=== PATIENT | female | born 1970 | race Caucasian/White ===

== ENCOUNTER → 2017-02-21 | Outpatient (CLI) | payer OTHER | END | disposition home or self-care (01) | LOC: CFH 07:16 | PROVIDERS: ATTEND Obstetrics & Gynecology Female Pelvic Medicine and Reconstructive Surgery | DX: N93.8 Other specified abnormal uterine and vaginal bleeding (principal) | CPT/HCPCS: 76830 ==

== ENCOUNTER 2017-06-18 05:35 | Day surgery (SDC) | payer OTHER ==
[~2017-06-18] VITALS: Ht 175.3 cm; Wt 97.8 kg
[2017-06-18 06:37] VITALS: BP 144/82
[2017-06-18] MEDS ORDERED: SYNTHROID PO (06:37)
[2017-06-18] MEDS ORDERED: LACTATED RINGERS 1,000 ML IV SCH ×2 (06:45→09:02)
[2017-06-18 06:47] LABS: BASOPHILS # (AUTO) 0.02 x10^3/uL (0-0.1); BASOPHILS % (AUTO) 0 % (0-1); EOSINOPHILS # (AUTO) 0.13 x10^3/uL (0-0.4); EOSINOPHILS % (AUTO) 2 % (1-7); LYMPHOCYTES # (AUTO) 1.97 x10^3/uL (1-3.4); LYMPHOCYTES % (AUTO) 22 % (22-44); MD NO; MEAN CORPUSCULAR HEMOGLOBIN 31.3 pg (27.0-34.8); MEAN CORPUSCULAR HGB CONC 33.5 g/dL (32.4-35.8); MEAN CORPUSCULAR VOLUME 93.3 fL (80-100); MEAN PLATELET VOLUME 7.4 fL (7.4-10.4); MONOCYTES # (AUTO) 0.69 x10^3/uL (0.2-0.8); MONOCYTES % (AUTO) 8 % (2-9); NEUTROPHILS # (AUTO) 6.27 x10^3/uL (1.8-6.8); NEUTROPHILS % (AUTO) 69 % (42-75); PLATELET COUNT 448 x10^3/uL (130-400); RED BLOOD COUNT 4.64 x10^6/uL (3.82-5.3); RED CELL DISTRIBUTION WIDTH 12.7 % (9.6-15.2)
[2017-06-18 06:49] LABS: HCG UR SG 1.024 (1.003-1.030)
[2017-06-18] MEDS ORDERED: ALBU8.5H8 INH (06:53)
[2017-06-18] MEDS ORDERED: MIDAZOLAM 1 MG/ML, 2ML ONE (07:05)
[2017-06-18] MEDS ORDERED: FENTANYL PF 250 MCG/5ML ONE (07:05)
[2017-06-18] MEDS ORDERED: LIDOCAINE GEL 2%, 5ML ONE (07:10)
[2017-06-18] MEDS ORDERED: INDIGO CARMINE 0.8%, 5ML ONE (07:11)
[2017-06-18] MEDS ORDERED: EPINEPHRINE 1 MG/ML, 1ML ONE (07:11)
[2017-06-18] MEDS ORDERED: BUPIVACAINE/PF 0.25% ONE (07:11)
[2017-06-18] MEDS ORDERED: KETOROLAC 30 MG/1 ML ONE (07:24)
[2017-06-18] MEDS ORDERED: FLUORESCEIN SODIUM 500 MG/5 ML ONE (07:46)
[2017-06-18] MEDS ORDERED: LIDOCAINE-MPF 2% ,5ML ONE (08:03)
[2017-06-18] MEDS ORDERED: PROPOFOL 10 MG/ML, 20ML ONE (08:06)
[2017-06-18] MEDS ORDERED: DEXAMETHASONE 4 MG/ML, 1ML ONE (08:06)
[2017-06-18] MEDS ORDERED: GLYCOPYRROLATE 0.2MG/1ML, 5ML ONE (08:06)
[2017-06-18] MEDS ORDERED: ROCURONIUM 10 MG/ML,10ML ONE (08:06)
[2017-06-18] MEDS ORDERED: ONDANSETRON 2MG/ML, 2ML ONE (08:06)
[2017-06-18] MEDS ORDERED: SUCCINYLCHOLINE 20 MG/ML, 10ML ONE (08:06)
[2017-06-18] MEDS ORDERED: CEFAZOLIN 1,000 MG ONE (08:06)
[2017-06-18] MEDS ORDERED: NEOSTIGMINE 1 MG/ML, 10ML ONE (08:06)
[2017-06-18] MEDS ORDERED: ALBUTEROL/IPRATROPIUM 2.5MG/0.5MG, 3 ML NPPB PRN (08:30)
[2017-06-18] MEDS ORDERED: FENTANYL PF 100 MCG/2ML IV PRN (08:30)
[2017-06-18] MEDS ORDERED: DIAZEPAM 5 MG/ML, 2ML IVPush PRN (08:30)
[2017-06-18] MEDS ORDERED: hydrALAzine 20 MG/ML, 1ML IV PRN (08:30)
[2017-06-18] MEDS ORDERED: HYDROmorphone 1 MG/ML, 1ML IV PRN (08:30)
[2017-06-18] MEDS ORDERED: LORazepam 2 MG/ML, 1ML IVPush PRN (08:30)
[2017-06-18] MEDS ORDERED: LABETALOL 5MG/ML, 20ML IV PRN (08:30)
[2017-06-18] MEDS ORDERED: METOCLOPRAMIDE 5 MG/ML, 2ML IV PRN (08:30)
[2017-06-18] MEDS ORDERED: ACETAMINOPHEN 325 MG TABLET PO PRN (08:30)
[2017-06-18] MEDS ORDERED: MEPERIDINE/PF 25MG/0.5ML IVPush PRN (08:30)
[2017-06-18] MEDS ORDERED: OXYcodone 5 MG/5 ML ORAL.SOL UDC PO PRN (08:30)
[2017-06-18] MEDS ORDERED: MIDAZOLAM 1 MG/ML, 2ML IV PRN (08:30)
[2017-06-18] MEDS ORDERED: ONDANSETRON 2MG/ML, 2ML IVPush PRN ×2 (08:30→09:30)
[2017-06-18] MEDS ORDERED: PROMETHAZINE 25 MG/ML, 1ML IV PRN (08:30)
[2017-06-18] MEDS ORDERED: PROMETHAZINE 12.5 MG SUPP PR PRN (08:30)
[2017-06-18] MEDS ORDERED: IBUPROFEN 600 MG TABLET PO PRN (09:30)
[2017-06-18] MEDS ORDERED: PROMETHAZINE 25 MG SUPP PR ONE (09:30)
[2017-06-18] MEDS ORDERED: OXYcodone/APAP 5/325MG TABLET PO PRN (09:30)
== END 2017-06-18 15:20 ==
LOC: OUT 05:35
PROVIDERS: ATTEND Obstetrics & Gynecology Female Pelvic Medicine and Reconstructive Surgery
DX: N93.8 Other specified abnormal uterine and vaginal bleeding (principal); D27.0 Benign neoplasm of right ovary; N73.6 Female pelvic peritoneal adhesions (postinfective); D25.9 Leiomyoma of uterus, unspecified; N83.8 Other noninflammatory disorders of ovary, fallopian tube and broad ligament; J45.909 Unspecified asthma, uncomplicated; E03.9 Hypothyroidism, unspecified; Z98.890 Other specified postprocedural states; Z88.5 Allergy status to narcotic agent
CPT/HCPCS: 36415; 58571; 81025; 85025; 88307; J0171; J0330; J0690; J1100; J1885; J2250; J2405; J2704; J2710; J3010; J3490; J7120

== ENCOUNTER → 2018-01-29 | Outpatient (CLI) | payer OTHER ==
[~2018-01-29] MED LIST: ALBU8.5H8 INH; LIDOCAINE-MPF 2%, 2ML ONE; SYNTHROID PO
== END | disposition home or self-care (01) ==
LOC: RAD 08:33
PROVIDERS: ATTEND Surgery
DX: E04.1 Nontoxic single thyroid nodule (principal)
CPT/HCPCS: 76942; J3490

== ENCOUNTER → 2018-07-17 | Outpatient (CLI) | payer OTHER ==
[~2018-07-17] MED LIST changes: -LIDOCAINE-MPF 2%, 2ML ONE
== END | disposition home or self-care (01) ==
LOC: CFH 09:55
PROVIDERS: ATTEND Obstetrics & Gynecology Female Pelvic Medicine and Reconstructive Surgery
DX: Z12.31 Encounter for screening mammogram for malignant neoplasm of breast (principal)
CPT/HCPCS: 77063; 77067